=== PATIENT | female | born 1995 | race African-American/Black ===

== ENCOUNTER 2025-07-09 22:30 | Emergency (ER) | payer SELFPAY ==
[~2025-07-09] VITALS: Ht 167.6 cm; Wt 69.0 kg
[2025-07-09 22:36] VITALS: TEMP 36.8; O2SAT 100
[2025-07-09] MEDS: TETRACAINE 0.5% OPHTH DROPS 4ML BOTHEYE ONE (23:25)
[2025-07-09] MEDS: FLUORESCEIN SODIUM 1MG/STRIP BOTHEYE ONE (23:25)
[2025-07-10] MEDS: CYCLOPENTOLATE HCL 1% OPHTH DROPS 2ML LEFTEYE ONE (00:07)
[2025-07-10] MEDS: IBUPROFEN 600MG TABLET PO ONE (00:07)
[2025-07-10] MEDS: NEO/POLYMYX B SULF/DEXAMETH OPHTH OINT 3.5GM LEFTEYE SCH (00:08)
[2025-07-10] MEDS: PREDNISOLONE ACETATE 1% OPHTH DROPS 5ML LEFTEYE SCH (00:08)
[2025-07-10] MEDS ORDERED: MAXOS LEFTEYE (00:43)
[2025-07-10] MEDS ORDERED: PRED5DRO22 LEFTEYE (00:43)
[2025-07-10] MEDS ORDERED: CYCL2DRO LEFTEYE (00:43)
[2025-07-10 01:03] VITALS: BP 150/90; PULSE 88; RESP 17; O2SAT 98
== END 2025-07-10 01:04 | disposition home or self-care (01) ==
LOC: ER 22:30
DX: H20.9 Unspecified iridocyclitis (principal); H57.89 Other specified disorders of eye and adnexa
CPT/HCPCS: 99284